=== PATIENT | female | born 1955 ===

== ENCOUNTER 2021-06-06 09:20 | Day surgery (SDC) | payer OTHER ==
[~2021-06-06 09:20] MED LIST: CALCIUM500 M2 PO; SIMVASTATIN PO
== END 2021-06-06 13:20 | disposition home or self-care (01) ==
LOC: CIR.AMB 09:20
PROVIDERS: ATTEND Surgery
DX: D17.1 Benign lipomatous neoplasm of skin and subcutaneous tissue of trunk (principal); Z20.822 Contact with and (suspected) exposure to COVID-19